=== PATIENT | male | born 1940 | race Caucasian/White ===

== ENCOUNTER 2022-07-02 14:19 | Day surgery (SDC) | payer OTHER, BC ==
[~2022-07-02] VITALS: Ht 188 cm; Wt 88.5 kg
[2022-07-02] VITALS (11 sets, daily range): BP systolic 116–150; BP diastolic 54–70
[~2022-07-02 14:19] MED LIST: ACET160S2 PO; ALBU2.5V10 INH; ATR0.5NEB INH; AZIT250T82 PO; BUSP5TAB3; DOCU283E6 PR; ENOX40DI11 SQ; ESOM20SU2; FER300L PO; GUAI100L97 PO; INSU100I8 SQ; LANTUS SQ; LEVO100T PO; LIDO700A47 TD; LORA-268 NG; NORM2DIS8 IV; NYST1000 PO; ONDA4AMP IV; POLY17PO59 PO; PRAV40TA3 PO; SODIUM CHLORIDE IV; VALS40TA11 PO
--- NOTE | 2022-07-02 14:24 | NUR ---
PT received from Transfer facility [facility] with shiley size 6 trach, placed pt on vent as charted. bilateral equal bs, pt awake alert following commands, to bedside, reported off to RN. Addendum: 07/02/22 at 1425 by Viki Peck RT Amended: Links added.
[2022-07-02] MEDS ORDERED: midazolam 1 mg/ML 2ml injection ONE (16:47)
[2022-07-02] MEDS ORDERED: sevoflurane 250ml liquid IH ONE (16:52)
[2022-07-02] MEDS ORDERED: FENTANYL CITRATE/PF 50 MCG/1 ML VIAL ONE (16:58)
--- NOTE | 2022-07-02 17:20 | NUR ---
Received from OR via BED, accompanied by Anesthesiologist and report given by Anesthesiologist. PATIENT WAKING UP, NO S/S OF PAIN, V/S WNL, SCD ON, 20G TO LUE, ABDOMEN PEG TUBE CDI CLEAN W/ NO S/S OF COMPLICATIONS, F/C DRAINING CLEAR YELLOW URINE, VENTED WITH CHRONIC TRACH SEE RT NOTES
[2022-07-02] MEDS ORDERED: morphine 2 MG/ML inj. syringe IV PRN (17:30)
[2022-07-02] MEDS ORDERED: acetaminophen 1,000mg/100ml IV 100 ML IV PRN (17:30)
[2022-07-02] MEDS ORDERED: ondansetron/PF 4mg/2ml inj IV PRN (17:30)
[2022-07-02] MEDS ORDERED: hydrALAZINE 20mg/ml inj. IV PRN (17:30)
[2022-07-02] MEDS ORDERED: ringers solution, lacted 1,000 ML IV SCH (17:30)
[2022-07-02] MEDS ORDERED: labetalol 20mg/4ml (5mg/ml) syringe IV PRN (17:30)
[2022-07-02] MEDS ORDERED: HYDROmorphone/PF 0.2 MG/ML SYRINGE IV PRN (17:30)
--- NOTE | 2022-07-02 18:50 | NUR ---
PATIENT A&OX4, DENIES PAIN, V/S WNL, SCD ON, 20G TO LUE, ABDOMEN PEG TUBE CDI CLEAN W/ NO S/S OF COMPLICATIONS, F/C DRAINING CLEAR YELLOW URINE, VENTED WITH CHRONIC TRACH SEE RT NOTES, REPORT CALLED TO [facility] WITH [facility] HER TO TRANSPORT WITH [facility] BROWN ASSISTING WITH TRANSPORT MANAGING AIRWAY TO [facility].
[2022-07-03] MEDS ORDERED: ringers solution, lacted 1,000 ML IV SCH (05:00)
[2022-07-03] MEDS ORDERED: famotidine 20mg tablet PO ONE (05:30)
== END 2022-07-02 18:50 | disposition home or self-care (01) ==
LOC: PAS 14:19
PROVIDERS: ATTEND Internal Medicine Gastroenterology
DX: R13.10 Dysphagia, unspecified (principal); F41.9 Anxiety disorder, unspecified; Z87.891 Personal history of nicotine dependence; Z79.899 Other long term (current) drug therapy; Z88.1 Allergy status to other antibiotic agents; Z88.0 Allergy status to penicillin; Z88.8 Allergy status to other drugs, medicaments and biological substances; Z85.118 Personal history of other malignant neoplasm of bronchus and lung; Z85.528 Personal history of other malignant neoplasm of kidney; Z85.6 Personal history of leukemia
CPT/HCPCS: 43246; 82948; A6258; B4087; J0131; J2250; J2270; J3010; J7030; Z7506; Z7512; A4618; J7120

== ENCOUNTER 2022-08-17 13:13 | Emergency (ER) | payer MEDICARE, BC ==
[~2022-08-17] VITALS: Ht 182.9 cm; Wt 118.2 kg
[~2022-08-17 13:13] MED LIST changes: -AZIT250T82 PO; -BUSP5TAB3; +DIAZ2TAB3 PO; -ENOX40DI11 SQ; -ESOM20SU2; -FER300L PO; -LEVO100T PO; -LIDO700A47 TD; -LORA-268 NG; +MELA3TAB41 PO; +METO-292 PO; +NITR0.4T51 SL; -NORM2DIS8 IV; -NYST1000 PO; -SODIUM CHLORIDE IV; +TRAM50TA2 PO; -VALS40TA11 PO
--- NOTE | 2022-08-17 13:20 | NUR ---
RT at bedside to place patient on vent ac mode to trach.
[2022-08-17 13:34] VITALS: BP 170/58
[2022-08-17 13:47] LABS: BASOPHILS % (AUTO) 0.2 % (0-1); EOSINOPHILS % (AUTO) 0.2 % (0-6); HEMATOCRIT 29.5 % (42.0-52.0); HEMOGLOBIN 9.7 g/dl (14.0-17.9); MEAN CORPUSCULAR HGB CONC 32.9 g/dL (33.0-36.5); MEAN CORPUSCULAR VOLUME 91.3 FL (78-98); MEAN PLATELET VOLUME 7.6 FL (7.4-10.4); MONOCYTES % (AUTO) 0.8 % (2-12); NEUTROPHILS # (AUTO) 2.2 X10'3 (1.8-7.7); NEUTROPHILS % (AUTO) 34.8 % (42-75); PLATELET COUNT 121 X10'3 (140-440); RED BLOOD COUNT 3.23 X10'6 (4.70-6.10); RED CELL DISTRIBUTION WIDTH 20.6 % (11.5-14.5); WHITE BLOOD COUNT 6.2 X10'3 (4.5-11.0)
[2022-08-17 14:03] LABS: ALANINE AMINOTRANSFERASE 6 U/L (12-78); ALBUMIN 1.8 G/DL (3.4-5.0); ALBUMIN/GLOBULIN RATIO 0.3 (1.1-1.5); ALKALINE PHOSPHATASE 132 IU/L (46-116); ANION GAP 1 (8-16); ASPARTATE AMINO TRANSFERASE 27 U/L (10-37); BILIRUBIN,TOTAL 0.4 MG/DL (0.1-1.0); BLOOD UREA NITROGEN 59 MG/DL (7-18); BUN/CREATININE RATIO 50.4 (5.4-32.0); CALCIUM 10.9 MG/DL (8.5-10.1); CHLORIDE 102 MMOL/L (99-107); CREATININE 1.17 MG/DL (0.60-1.10); GLUCOSE 179 MG/DL (70-104); SODIUM 138 MMOL/L (135-145); TOTAL CARBON DIOXIDE 34.9 MMOL/L (24-32); TOTAL PROTEIN 7.7 G/DL (6.4-8.2); eGFR 60 ML/MIN
[2022-08-17 14:11] LABS: POTASSIUM 4.6 MMOL/L (3.5-5.1)
[2022-08-17 14:38] LABS: TOTAL CELLS COUNTED 100
[2022-08-17 14:39] LABS: ANISOCYTOSIS 3+; PLATELET ESTIMATE DECREASED; SMUDGE CELLS 1+
[2022-08-17 15:29] VITALS: BP 170/58
[2022-08-17 17:53] VITALS: BP 149/50
--- NOTE | 2022-08-17 18:38 | NUR ---
report to devendra breaux for continuation of care.
[2022-08-17] MEDS ORDERED: diazepam inj 5 MG/ML inj. IV ONE (18:50)
[2022-08-17 19:11] VITALS: BP 137/49
[2022-08-17 21:14] VITALS: BP 137/49
--- NOTE | 2022-08-17 21:23 | NUR ---
Report called to Appleline the nurse at [facility] at this time, patient cleared for return upon arrival of ALS crew.
[2022-08-17 23:50] VITALS: BP 141/47
== END 2022-08-18 00:29 ==
LOC: ER 13:13
DX: R00.1 Bradycardia, unspecified (principal); I11.0 Hypertensive heart disease with heart failure; I50.9 Heart failure, unspecified; E78.00 Pure hypercholesterolemia, unspecified; J44.9 Chronic obstructive pulmonary disease, unspecified; K21.9 Gastro-esophageal reflux disease without esophagitis; E11.9 Type 2 diabetes mellitus without complications; E03.9 Hypothyroidism, unspecified; G89.29 Other chronic pain; M10.9 Gout, unspecified; Z98.890 Other specified postprocedural states; Z79.899 Other long term (current) drug therapy; Z88.1 Allergy status to other antibiotic agents; Z88.6 Allergy status to analgesic agent; Z88.8 Allergy status to other drugs, medicaments and biological substances; Z79.4 Long term (current) use of insulin
CPT/HCPCS: 36415; 71045; 80053; 83880; 84484; 85007; 85025; 93005; 96374; 99285; J3360; 94002; 94760